=== PATIENT | female | born 1945 | race American Indian/Alaskan Native ===

== ENCOUNTER 2017-02-24 12:52 | Emergency (ER) | payer OTHER, MEDICARE ==
[2017-02-24 12:52] VITALS: BMI 26.2
[2017-02-24 13:24] VITALS: TEMP 98.3
--- NOTE | 2017-02-24 14:45 | ED PDOC ---
Arrival/HPI - General Chief Complaint: Allergic Reaction Time Seen by Provider: 02/24/17 14:37 Historian: Patient - History of Present Illness Narrative History of Present Illness (Text): 02/24/17 14:46 71-year-old female presents today with allergic reaction since yesterday. Patient states she tried a new detox cleanser from [facility] and developed swelling to the left side of the face. Patient states this occurred yesterday. No medications were taken at home. Patient states the swelling has drastically decreased. She denies trismus or drooling. Denies difficulty breathing or swallowing. No chest pain or shortness of breath. Denies rash. Denies pruritus at present time. No other complaints Time/Duration: Other (1 day) Symptom Onset: Sudden Symptom Course: Resolved Quality: Other (No pain) Past Medical History - Provider Review Nursing Documentation Reviewed: Yes - Travel History Have you recently traveled outside [place] w/in the past 3 mons?: No - Infectious Disease Hx of Infectious Diseases: None - Tetanus Immunization Tetanus Immunization: Unknown - Cardiac Hx Hypertension: Yes - Pulmonary Hx Asthma: Yes (secondary to seasonal allergies ) - Endocrine/Metabolic Hx Diabetes Mellitus Type 2: Yes - Psychiatric Hx Depression: No Hx Substance Use: No - Surgical History Hx Gastric Bypass Surgery: No - Anesthesia Hx Anesthesia: No - Suicidal Assessment Feels Threatened In Home Enviroment: No Family/Social History - Physician Review Nursing Documentation Reviewed: Yes Family/Social History: Unknown Family HX Smoking Status: Never Smoked Hx Alcohol Use: No Hx Substance Use: No Hx Substance Use Treatment: No Allergies/Home Meds Allergies/Adverse Reactions: Allergies No Known Allergies Allergy (Verified 02/24/17 13:25) Home Medications: Home Meds Medication Instructions Recorded Confirmed Metformin Hydrochloride [Metformin] 1 tab PO BID 03/06/15 03/07/16 Losartan Potassium [Losartan 1 tab PO DAILY 02/24/17 02/24/17 Potassium] Review of Systems - Review of Systems Constitutional: absent: Fatigue, Fevers ENT: Other (Facial swelling) Respiratory: absent: SOB, Cough Cardiovascular: absent: Chest Pain, Palpitations Gastrointestinal: absent: Abdominal Pain, Diarrhea, Nausea, Vomiting Genitourinary Female: absent: Dysuria, Frequency Musculoskeletal: absent: Arthralgias, Back Pain, Neck Pain Skin: Pruritis Neurological: absent: Headache, Dizziness Psychiatric: absent: Anxiety, Depression Physical Exam Vital Signs Reviewed: Yes Vital Signs Temp Pulse Resp BP Pulse Ox 02/24/17 13:21 98.3 F 84 18 131/80 97 Temperature: Afebrile Blood Pressure: Normal Pulse: Regular Respiratory Rate: Normal Appearance: Positive for: Well-Appearing, Non-Toxic, Comfortable Pain Distress: None Mental Status: Positive for: Alert and Oriented X 3 - Systems Exam Head: Present: Atraumatic, Normocephalic. No: Tenderness, Contusion, Swelling, Ecchymosis, Abrasion, Laceration Extroacular Muscles: Present: EOMI Conjunctiva: Present: Normal Ears: Present: Normal, NORMAL TM Mouth: Present: Moist Mucous Membranes, Normal Lips, Normal Tounge, Normal Teeth , Other (No elevation of the floor of the mouth). No: Drooling, Trismus Pharnyx: Present: Normal. No: ERYTHEMA, EXUDATE, TONSILS ENLARGED, Peritonsilar Swelling, Uvular Deviation, Muffled/Hoarse Voice, Strider, Soft Palate/Uvular Edema Nose (Internal): Present: Normal Inspection Neck: Present: Normal Range of Motion, Trachea Midline. No: Lymphadenopathy Respiratory/Chest: Present: Clear to Auscultation, Good Air Exchange. No: Respiratory Distress, Accessory Muscle Use Cardiovascular: Present: Regular Rate and Rhythm, Normal S1, S2. No: Murmurs Upper Extremity: Present: Normal ROM Lower Extremity: Present: Normal ROM Neurological: Present: GCS=15 Skin: Present: Warm, Dry, Normal Color. No: Rashes Psychiatric: Present: Alert, Oriented x 3 Medical Decision Making ED Course and Treatment: 02/24/17 14:48 Patient is nontoxic well-appearing in no distress with stable vital signs no angioedema. Lungs are clear to auscultation bilaterally there is no wheezing noted. The airway is patent Patient with allergic reaction yesterday which since has resolved. Benadryl 25 mg by mouth Prednisone 40 by mouth Patient reassessment: After medications patient is feeling much better the lungs are clear to auscultation bilaterally the airway is patent the patient is speaking in full sentences. I've advised to discontinue the use of the detox cleansing pills. I advised taking Benadryl every 6 hours as needed for itch as well as prednisone daily x4 days. Advised patient to follow up with primary care physician within the next 2 days and return if symptoms worsen persist or if new symptoms develop Patient verbalized full agreement with and understanding of discharge instructions. States that she agrees with the plan and disposition. Verbalized and repeated discharge instructions and plan. I have given her the opportunity to ask any additional questions. Impression :Allergic reaction Benadryl every 6 hours as needed for itch Prednisone once daily x4 days Pepcid one tablet daily Follow up with the primary care physician tomorrow Return if symptoms worsen persist or if new symptoms develop: Shortness of breath, feeling of throat closing, difficulty speaking or any other concerning symptoms develop Disposition/Present on Arrival - Present on Arrival Any Indicators Present on Arrival: No History of DVT/PE: No History of Uncontrolled Diabetes: No Urinary Catheter: No History of Decub. Ulcer: No History Surgical Site Infection Following: None - Disposition Have Diagnosis and Disposition been Completed?: Yes Diagnosis: Allergic reaction Disposition: HOME/ ROUTINE Disposition Time: 14:39 Patient Plan: Discharge Condition: GOOD Discharge Instructions (ExitCare): General Allergic Reaction (ED) Additional Instructions: Benadryl every 6 hours as needed for itch Prednisone once daily x4 days Pepcid one tablet daily Follow up with the primary care physician tomorrow Return if symptoms worsen persist or if new symptoms develop: Shortness of breath, feeling of throat closing, difficulty speaking or any other concerning symptoms develop Prescriptions: DiphenhydrAMINE [Benadryl] 25 mg PO Q6H #20 cap Famotidine [Pepcid] 20 mg PO DAILY #30 tab predniSONE [predniSONE Tab] 2 tab PO DAILY #8 tab Referrals: Aleksandr Warren DO [Staff Provider] - Follow up with primary Giselle Thompson MD [Staff Provider] - Follow up with primary Forms: [employer] (Egyptian)
[2017-02-24 15:00] VITALS: BP 132/80; PULSE 82; RESP 16; O2SAT 98
== END 2017-02-24 14:56 | disposition home or self-care (01) ==
LOC: ED 12:52
DX: T78.40XA Allergy, unspecified, initial encounter (principal); X58.XXXA Exposure to other specified factors, initial encounter

== ENCOUNTER 2017-12-11 22:37 | Emergency (ER) | payer OTHER, MEDICARE ==
--- NOTE | 2017-12-11 22:47 | ED PDOC ---
Arrival/HPI - General Time Seen by Provider: 12/11/17 22:44 Historian: Patient - History of Present Illness Narrative History of Present Illness (Text): 12/11/17 22:46 72yo female with PMhx of Asthma, hypertension and NIDDM who present with complaint of clear productive cough since yesterday. States she came to ED tonight but she started wheezing while laying down and coughing. She did not use her inhaler. Denies fever, chills, SOB, chest pain, sick contact, travel, any other complaint. Past Medical History - Provider Review Nursing Documentation Reviewed: Yes - Infectious Disease Hx of Infectious Diseases: None - Tetanus Immunization Tetanus Immunization: Unknown - Cardiac Hx Cardiac Disorders: Yes Hx Hypertension: Yes - Pulmonary Hx Respiratory Disorders: Yes Hx Asthma: Yes (secondary to seasonal allergies ) - Neurological Hx Neurological Disorder: No - HEENT Hx HEENT Disorder: Yes (seasonal allergies) - Renal Hx Renal Disorder: No - Endocrine/Metabolic Hx Endocrine Disorders: Yes Hx Diabetes Mellitus Type 2: Yes - Hematological/Oncological Hx Blood Disorders: No - Integumentary Hx Dermatological Disorder: Yes Other/Comment: large lipoma, right shoulder - Musculoskeletal/Rheumatological Hx Musculoskeletal Disorders: No - Gastrointestinal Hx Gastrointestinal Disorders: No - Genitourinary/Gynecological Hx Genitourinary Disorders: No - Psychiatric Hx Psychophysiologic Disorder: No - Surgical History Hx Breast Biopsy: Yes (left breast x 4) - Anesthesia Hx Anesthesia: Yes Hx Anesthesia Reactions: No Hx Malignant Hyperthermia: No - Suicidal Assessment Feels Threatened In Home Enviroment: No Family/Social History - Physician Review Nursing Documentation Reviewed: Yes Family/Social History: Unknown Family HX Smoking Status: Never Smoked Hx Alcohol Use: No Hx Substance Use Treatment: No Allergies/Home Meds Allergies/Adverse Reactions: Allergies No Known Allergies Allergy (Verified 12/11/17 22:43) Home Medications: Home Meds Medication Instructions Recorded Confirmed Losartan Potassium [Losartan 1 tab PO DAILY 02/24/17 12/11/17 Potassium] metFORMIN [glucOPHAGE] 500 mg PO BID 06/08/17 12/11/17 Review of Systems - Physician Review All systems were reviewed & negative as marked: Yes - Review of Systems Constitutional: Normal Eyes: Normal ENT: Normal Respiratory: Cough, Sputum. absent: SOB, Wheezing Cardiovascular: Normal Gastrointestinal: Normal Genitourinary Female: Normal Musculoskeletal: Normal Skin: Normal Neurological: Normal Endocrine: Normal Hemo/Lymphatic: Normal Psychiatric: Normal Physical Exam Vital Signs Reviewed: Yes Vital Signs Temp Pulse Resp BP Pulse Ox 12/11/17 23:45 84 18 128/76 100 12/11/17 22:38 98 F 87 18 149/94 H 99 Temperature: Afebrile Blood Pressure: Normal Pulse: Regular Respiratory Rate: Normal Appearance: Positive for: Well-Appearing, Non-Toxic, Comfortable Pain Distress: None Mental Status: Positive for: Alert and Oriented X 3 - Systems Exam Head: Present: Atraumatic, Normocephalic Pupils: Present: PERRL Extroacular Muscles: Present: EOMI Conjunctiva: Present: Normal Mouth: Present: Moist Mucous Membranes Neck: Present: Normal Range of Motion Respiratory/Chest: Present: Clear to Auscultation, Good Air Exchange. No: Respiratory Distress, Accessory Muscle Use, Wheezes, Decreased Breath Sounds, Rales, Retracting, Rhonchi Cardiovascular: Present: Regular Rate and Rhythm, Normal S1, S2. No: Murmurs Abdomen: No: Tenderness, Distention, Peritoneal Signs Back: Present: Normal Inspection Upper Extremity: Present: Normal Inspection. No: Cyanosis, Edema Lower Extremity: Present: Normal Inspection. No: Edema Neurological: Present: GCS=15, CN II-XII Intact, Speech Normal Skin: Present: Warm, Dry, Normal Color. No: Rashes Psychiatric: Present: Alert, Oriented x 3, Normal Insight, Normal Concentration Medical Decision Making ED Course and Treatment: 12/11/17 23:06 PT present to ED for stated history. She was afebrile and hemodynamically stable. Her lung was CTA b/l. She notes that she ran out of her inhaler. she will be DC home with antitussive and albuterol inhaler. Chest xray - NAD They is no indication for antibiotics at this time. Referred to her PMD. - RAD Interpretation Radiology Orders: 12/11/17 22:44 CHEST TWO VIEWS (PA/LAT) [RAD] Stat - Medication Orders Current Medication Orders: Discontinued Medications Albuterol/Ipratropium (Duoneb 3 Mg/0.5 Mg (3 Ml) Ud) 3 ml IH STAT STA Stop: 12/11/17 23:01 Last Admin: 12/11/17 23:07 Dose: 3 ml Promethazine HCl (Phenergan Syrup) 6.25 mg PO ONCE STA Stop: 12/11/17 23:06 Last Admin: 12/11/17 23:43 Dose: 6.25 mg Disposition/Present on Arrival - Present on Arrival Any Indicators Present on Arrival: No History of DVT/PE: No History of Uncontrolled Diabetes: No Urinary Catheter: No History Surgical Site Infection Following: None - Disposition Have Diagnosis and Disposition been Completed?: Yes Diagnosis: Cough Disposition: HOME/ ROUTINE Disposition Time: 23:10 Patient Plan: Discharge Condition: STABLE Discharge Instructions (ExitCare): Cough in Adults Additional Instructions: Follow up with your doctor Return to ED for any new or worsening symptoms Prescriptions: Albuterol HFA [Ventolin HFA 90 mcg/actuation (8 g)] 2 puff IH [id number] #1 puff Promethazine [Phenergan Syrup] 6.25 % PO Q6 #100 dose Referrals: [facility] [place] - Follow up with primary Forms: [employer] (Cypriot)
[2017-12-11 22:54] VITALS: RESP 18; TEMP 98; BMI 27.4
[2017-12-11] MEDS ORDERED: Albuterol-Ipratrop 3 mg / 0.5 (3 ml) UD IH STA (23:00)
[2017-12-11] MEDS ORDERED: Promethazine 6.25 MG/5 ML CUP PO STA (23:05)
[2017-12-11 23:46] VITALS: BP 128/76; PULSE 84; O2SAT 100
--- NOTE | 2017-12-12 09:35 | RAD ---
HISTORY: Cough COMPARISON: 03/06/2015 TECHNIQUE: Chest PA and lateral FINDINGS: LUNGS: Minor bibasilar atelectasis. PLEURA: No significant pleural effusion identified. No pneumothorax apparent. CARDIOVASCULAR: Normal. OSSEOUS STRUCTURES: No significant abnormalities. VISUALIZED UPPER ABDOMEN: Normal. OTHER FINDINGS: None. IMPRESSION: Minor bibasilar atelectasis.
== END 2017-12-11 23:45 | disposition home or self-care (01) ==
LOC: ED 22:37
DX: R05 Cough (principal); E11.9 Type 2 diabetes mellitus without complications; I10 Essential (primary) hypertension

== ENCOUNTER 2018-02-16 16:30 | Emergency (ER) | payer OTHER, MEDICARE ==
[2018-02-16 16:44] VITALS: BP 137/81; RESP 18; BMI 28.1
[2018-02-16 17:47] LABS: PH,URINE 5.5 (4.7-8.0); URINE BILIRUBIN NEGATIVE (NEGATIVE); URINE BLOOD SMALL (NEGATIVE); URINE GLUCOSE (UA) NEGATIVE (NEGATIVE); URINE LEUKOCYTE ESTERASE NEGATIVE Leu/uL (NEGATIVE); URINE PROTEIN TRACE mg/dL (<30 mg/dL); URINE UROBILINOGEN 0.2 E.U./dL (<1 E.U./dL)
[2018-02-16 17:48] LABS: BASO # 0.02 K/mm3 (0.0-2.0); BASO % 0.2 % (0.0-3.0); EOS # 0.4 (0.0-0.7); EOS % 4.2 % (1.5-5.0); GRAN # 4.38 (1.4-6.5); GRAN % 52.2 % (50.0-68.0); HEMOGLOBIN 14.3 g/dL (12.0-16.0); LYMPH # 2.8 (1.2-3.4); LYMPH % 33.5 % (22.0-35.0); MEAN CELL VOLUME 91.4 fl (80.0-105.0); MEAN CORPUSCULAR HEMOGLOBIN 31.6 pg (25.0-35.0); MEAN CORPUSCULAR HGB CONC 34.5 g/dl (31.0-37.0); MEAN PLATELET VOLUME 9.6 fl (7.0-11.0); MONO # 0.8 (0.1-0.6); MONO % 9.9 % (1.0-6.0); RBC 4.53 10^6/uL (3.5-6.1); RED CELL DISTRIBUTION WIDTH 12.5 % (11.5-14.5); WHITE BLOOD COUNT 8.4 10^3/ul (4.5-11.0)
[2018-02-16 17:57] LABS: URINE COLOR YELLOW (YELLOW)
[2018-02-16 17:58] LABS: ALB/GLOB RATIO 1.3 (1.1-1.8); ALBUMIN 4.3 g/dL (3.0-4.8); ALT/SGPT 35 U/L (7-56); AST/SGOT 34 U/L (14-36); BLOOD UREA NITROGEN 17 mg/dL (7-21); CALCIUM 9.2 mg/dL (8.4-10.5); GFR AFRICAN-AMERICAN > 60; GFR NON-AFRICAN AMERICAN > 60
[2018-02-16 17:58] LABS: URINE APPEARANCE SL CLOUDY (CLEAR)
[2018-02-16 17:59] LABS: URINE BACTERIA MOD (NEG); URINE CALCIUM OXALATE CRYSTALS MOD /hpf
--- NOTE | 2018-02-16 18:14 | RAD ---
Date of service: 02/16/2018 PROCEDURE: Radiographs of the Lumbar Spine. HISTORY: Hip and back pain. No history of trauma. COMPARISON: No prior. FINDINGS: BONES: Diffuse osteopenia. Mild dextroscoliosis. DISC SPACES: Unremarkable. OTHER FINDINGS: Calcified nonaneurysmal abdominal aorta. Partially calcified myomatous uterus. IMPRESSION: No acute findings related to/accounting for the clinical presentation. Additional benign and/or incidental findings described above.
--- NOTE | 2018-02-16 18:14 | RAD ---
PROCEDURE: Left Hip X-ray Radiographs. HISTORY: Hip Pain. No history of recent/ related trauma provided COMPARISON: None. FINDINGS: BONES: Normal. No fracture. JOINTS: Degenerative changes are moderate and symmetrical. SOFT TISSUES: Normal. OTHER FINDINGS: Calcified uterine fibroids. IMPRESSION: No acute findings related to/accounting for the clinical presentation.
--- NOTE | 2018-02-16 18:57 | ED PDOC ---
Arrival/HPI - General Chief Complaint: Back Pain Time Seen by Provider: 02/16/18 16:54 Historian: Patient - History of Present Illness Narrative History of Present Illness (Text): 02/16/18 19:05 72yr old female presents today with left-sided low back pain and left hip pain. Patient states she's been having pain for the past 2 days. Patient denies any recent fall. Patient states the only thing that she can think that started the pain was when she was pushing a chair with all of her belongings across the room at work. Patient denies abdominal pain. Denies nausea vomiting diarrhea or constipation. She denies any urinary symptoms. Denies dysuria or urinary frequency. She denies hematuria. Patient denies chest pain or shortness of breath. Patient denies numbness weakness or tingling in the lower extremity. Patient states for the past 2 days she's had this achy pain in the left lower back into the left hip. Patient states the pain is worse if she sitting upright or with movement of the hip. Patient has not taken any medications for pain at home. No other complaints. Time/Duration: Other (2 days) Symptom Course: Unchanged Quality: Aching Severity Level: Mild Past Medical History - Provider Review Nursing Documentation Reviewed: Yes - Travel History Have you recently traveled outside [place] w/in the past 3 mons?: No - Infectious Disease Hx of Infectious Diseases: None - Tetanus Immunization Tetanus Immunization: Unknown - Cardiac Hx Cardiac Disorders: Yes Hx Hypertension: Yes - Pulmonary Hx Respiratory Disorders: Yes Hx Asthma: Yes (secondary to seasonal allergies ) - Neurological Hx Neurological Disorder: No - HEENT Hx HEENT Disorder: Yes (seasonal allergies) - Renal Hx Renal Disorder: No - Endocrine/Metabolic Hx Endocrine Disorders: Yes Hx Diabetes Mellitus Type 2: Yes - Hematological/Oncological Hx Blood Disorders: No - Integumentary Hx Dermatological Disorder: Yes Other/Comment: large lipoma, right shoulder - Musculoskeletal/Rheumatological Hx Musculoskeletal Disorders: No - Gastrointestinal Hx Gastrointestinal Disorders: No - Genitourinary/Gynecological Hx Genitourinary Disorders: No - Psychiatric Hx Psychophysiologic Disorder: No Hx Substance Use: No - Surgical History Hx Breast Biopsy: Yes (left breast x 4) Other/Comment: R shoulder tumor removal - Anesthesia Hx Anesthesia: Yes Hx Anesthesia Reactions: No Hx Malignant Hyperthermia: No - Suicidal Assessment Feels Threatened In Home Enviroment: No Family/Social History - Physician Review Nursing Documentation Reviewed: Yes Family/Social History: Unknown Family HX Smoking Status: Never Smoked Hx Alcohol Use: No Hx Substance Use: No Hx Substance Use Treatment: No Allergies/Home Meds Allergies/Adverse Reactions: Allergies No Known Allergies Allergy (Verified 12/11/17 22:43) Home Medications: Home Meds Medication Instructions Recorded Confirmed Losartan Potassium [Losartan 1 tab PO DAILY 02/24/17 02/16/18 Potassium] metFORMIN [glucOPHAGE] 500 mg PO BID 06/08/17 02/16/18 Review of Systems - Review of Systems Constitutional: absent: Fatigue, Fevers Respiratory: absent: SOB, Cough Cardiovascular: absent: Chest Pain, Palpitations Gastrointestinal: absent: Abdominal Pain, Constipation, Diarrhea, Nausea, Vomiting Genitourinary Female: absent: Dysuria, Frequency, Hematuria, Vaginal Discharge Musculoskeletal: Arthralgias (left hip pain), Back Pain (left low back pain) Skin: absent: Rash, Pruritis Neurological: absent: Headache, Dizziness Psychiatric: absent: Anxiety, Depression Physical Exam Vital Signs Reviewed: Yes Vital Signs Temp Pulse Resp BP Pulse Ox 02/16/18 16:38 99.0 F 97 H 18 137/81 98 Temperature: Afebrile Blood Pressure: Normal Pulse: Regular Respiratory Rate: Normal Appearance: Positive for: Well-Appearing, Non-Toxic, Comfortable Pain Distress: None Mental Status: Positive for: Alert and Oriented X 3 - Systems Exam Head: Present: Atraumatic Mouth: Present: Moist Mucous Membranes Neck: Present: Normal Range of Motion Respiratory/Chest: Present: Clear to Auscultation, Good Air Exchange. No: Respiratory Distress, Accessory Muscle Use Cardiovascular: Present: Regular Rate and Rhythm, Normal S1, S2. No: Murmurs Abdomen: No: Tenderness, Distention, Peritoneal Signs, Rebound, Guarding Back: Present: Normal Inspection, Paraspinal Tenderness (+ minimal left lower back minimal tenderness over the posterior left hip. ). No: CVA Tenderness, Midline Tenderness Upper Extremity: Present: Normal Inspection, Normal ROM Lower Extremity: Present: NORMAL PULSES, Normal ROM, Tenderness (left hip; + ttp over the posterior aspect of the hip; + ttp over lateral aspect of hip; full rom of hip with pain; no erythema; no edema, no ecchymosis; sensation and distal pulses intact. cap refill <2. ), Neurovascularly Intact, Capillary Refill < 2 s. No: CALF TENDERNESS, Swelling, Erythema, Deformity Neurological: Present: GCS=15 Skin: Present: Warm, Dry, Normal Color. No: Rashes Psychiatric: Present: Alert, Oriented x 3 Medical Decision Making ED Course and Treatment: 02/16/18 19:10 72yr old female with 2 day history of left back/hip pain. xray left hip; no fracture xray ls spine; no fracture toradol given IV cbc; wnl cmp; wnl UA; no leukocytes pt seen and evaluated by dr. caldwell. pt reassessment; pt feeling much better after medications; pt with full rom of hip with minimal pain. ambulating with steady gait. will add cane for additional support. I discussed the results and after the patient advised follow-up with the orthopedist and primary care physician within the next 2 days. Advised immediate return is symptoms worsen or persist or if new concerning symptoms develop Patient verbalizes understanding of discharge instructions and need for immediate followup. all aspects of this case were discussed the attending of record. Impression: Hip pain, back pain Motrin every 6 hours as needed for pain tramadol: 1 tablet every 8 hours as needed for moderate to severe pain; may cause drowsiness follow up with the primary care physician within the next 2 days Follow up with the Orthopedist within the next 2 days. return immediately if symptoms worsen,persist or if new symptoms develop. - Lab Interpretations Lab Results: 02/16/18 17:30 02/16/18 17:30 Lab Results 02/16/18 17:30: WBC 8.4, RBC 4.53, Hgb 14.3, Hct 41.4, MCV 91.4, MCH 31.6, MCHC 34.5, RDW 12.5, Plt Count 275, MPV 9.6, Gran % 52.2, Lymph % (Auto) 33.5, [place] % (Auto) 9.9 H, Eos % (Auto) 4.2, Baso % (Auto) 0.2, Gran # 4.38, Lymph # (Auto ) 2.8, [place] # (Auto) 0.8 H, Eos # (Auto) 0.4, Baso # (Auto) 0.02 02/16/18 17:30: Sodium 142, Potassium 3.9, Chloride 103, Carbon Dioxide 26, Anion Gap 17, BUN 17, Creatinine 0.9, Est GFR ( Amer) > 60, Est GFR (Non- Af Amer) > 60, Random Glucose 106, Calcium 9.2, Total Bilirubin 0.4, AST 34, ALT 35, Alkaline Phosphatase 80, Total Protein 7.7, Albumin 4.3, Globulin 3.4, Albumin/Globulin Ratio 1.3 02/16/18 13:32: Urine Color Yellow, Urine Appearance Sl cloudy, Urine pH 5.5, Ur Specific [place] >= 1.030, Urine Protein Trace H, Urine Glucose (UA) Negative , Urine Ketones Trace H, Urine Blood Small H, Urine Nitrate Negative, Urine Bilirubin Negative, Urine Urobilinogen 0.2, Ur Leukocyte Esterase Negative, Urine RBC 2 - 5, Urine WBC 5 - 10, Ur Epithelial Cells 10 - 12, Calcium Oxalate Crystal Mod, Urine Bacteria Mod - RAD Interpretation Radiology Orders: 02/16/18 17:05 Hip Left [HIP MIN 2V W/ PELVIS LT] [RAD] Stat LS SPINE WITH OBL > 18 YRS OLD [RAD] Stat - Medication Orders Current Medication Orders: Discontinued Medications Ketorolac Tromethamine (Toradol) 15 mg IVP STAT STA Stop: 02/16/18 17:20 Last Admin: 02/16/18 18:26 Dose: 15 mg MAR Pain Assessment Document 02/16/18 18:26 [facility] (Rec: 02/16/18 18:[address] [id number]) Pain Reassessment Is this a pain reassessment? No Sleep Is patient sleeping during reassessment? No Presence of Pain Presence of Pain Yes Pain Scale Used Pain Scale Used Numeric Location Pain Location Body Site Back Description Description Constant Intensity of Pain at present 5 Pain Behavior Facial Grimacing Aggravating Factors Changing Position Alleviating Factors/Management Medication Techniques Alleviating Factors Medication IVP Administration Document 02/16/18 18:26 [facility] (Rec: 02/16/18 18:[address] [id number]) Charges for Administration # of IVP Administrations 1 Disposition/Present on Arrival - Present on Arrival Any Indicators Present on Arrival: No History of DVT/PE: No History of Uncontrolled Diabetes: No Urinary Catheter: No History of Decub. Ulcer: No History Surgical Site Infection Following: None - Disposition Have Diagnosis and Disposition been Completed?: Yes Diagnosis: Hip pain, Back pain Disposition: HOME/ ROUTINE Disposition Time: 18:55 Patient Plan: Discharge Patient Problems: Current Active Problems Problem Status Onset Back pain Acute Hip pain Acute Condition: GOOD Discharge Instructions (ExitCare): Hip Pain (DC) Additional Instructions: Motrin every 6 hours as needed for pain tramadol: 1 tablet every 8 hours as needed for moderate to severe pain; may cause drowsiness follow up with the primary care physician within the next 2 days Follow up with the Orthopedist within the next 2 days. return immediately if symptoms worsen,persist or if new symptoms develop. Prescriptions: Ibuprofen [Motrin] 600 mg PO Q6H PRN #15 tab PRN Reason: pain/fever reduction traMADol [Ultram] 50 mg PO Q6H PRN #6 tab PRN Reason: moderate to severe pain Referrals: Soledad Hays MD [Staff Provider] - Follow up with primary Nic Moreira DO [Staff Provider] - Follow up with primary [employer] [Outside] - Follow up with primary Forms: [employer] (Nepalese), WORK NOTE
[2018-02-16 19:11] VITALS: PULSE 95; TEMP 98.9; O2SAT 99
== END 2018-02-16 19:14 | disposition home or self-care (01) ==
LOC: ED 16:30
DX: M25.552 Pain in left hip (principal); M54.5 Low back pain
CPT/HCPCS: 72110; 73502; 80053; 81001; 85025; 87086; 96374; 99282; J1885

== ENCOUNTER 2018-04-19 15:28 | Emergency (ER) | payer OTHER, MEDICARE ==
[2018-04-19 15:29] VITALS: BMI 27.4
--- NOTE | 2018-04-19 15:57 | ED PDOC ---
Arrival/HPI - General Chief Complaint: Abnormal Skin Integrity Time Seen by Provider: 04/19/18 15:38 Historian: Patient - History of Present Illness Narrative History of Present Illness (Text): 04/19/18 15:58 72 yo F c/o red painful rash underneath her R breast which she noticed today. Denies any palpable mass, nipple d/c, fevers, chills, CP, SOB, palpitations, back pain, trauma, injury, N/V, abdominal pain. Has no additional complaints. Past Medical History - Infectious Disease Hx of Infectious Diseases: None - Tetanus Immunization Tetanus Immunization: Unknown - Reproductive Menopause: Yes - Cardiac Hx Cardiac Disorders: Yes Hx Hypertension: Yes - Pulmonary Hx Respiratory Disorders: Yes Hx Asthma: Yes (secondary to seasonal allergies ) - Neurological Hx Neurological Disorder: No - HEENT Hx HEENT Disorder: Yes (seasonal allergies) - Renal Hx Renal Disorder: No - Endocrine/Metabolic Hx Endocrine Disorders: Yes Hx Diabetes Mellitus Type 2: Yes - Hematological/Oncological Hx Blood Disorders: No - Integumentary Hx Dermatological Disorder: Yes Other/Comment: large lipoma, right shoulder - Musculoskeletal/Rheumatological Hx Musculoskeletal Disorders: No - Gastrointestinal Hx Gastrointestinal Disorders: No - Genitourinary/Gynecological Hx Genitourinary Disorders: No - Psychiatric Hx Psychophysiologic Disorder: No Hx Substance Use: No - Surgical History Hx Breast Biopsy: Yes (left breast x 4) Other/Comment: R shoulder tumor removal - Anesthesia Hx Anesthesia: Yes Hx Anesthesia Reactions: No Hx Malignant Hyperthermia: No - Suicidal Assessment Feels Threatened In Home Enviroment: No Family/Social History Family/Social History: No Known Family HX Smoking Status: Never Smoked Hx Alcohol Use: No Hx Substance Use: No Hx Substance Use Treatment: No Allergies/Home Meds Allergies/Adverse Reactions: Allergies No Known Allergies Allergy (Verified 04/19/18 15:40) Home Medications: Home Meds Medication Instructions Recorded Confirmed Losartan Potassium [Losartan 25 mg PO DAILY 02/24/17 04/19/18 Potassium] metFORMIN [glucOPHAGE] 500 mg PO BID 06/08/17 04/19/18 Review of Systems - Review of Systems Constitutional: absent: Fatigue, Fevers Respiratory: absent: SOB, Cough Cardiovascular: absent: Chest Pain, Palpitations Gastrointestinal: absent: Abdominal Pain, Nausea, Vomiting Musculoskeletal: absent: Arthralgias, Back Pain, Neck Pain Skin: Rash. absent: Pruritis, Skin Lesions Neurological: absent: Headache, Dizziness Physical Exam Vital Signs Temp Pulse Resp BP Pulse Ox 04/19/18 15:37 98.5 F 97 H 18 149/81 97 Temperature: Afebrile Blood Pressure: Normal Pulse: Regular Respiratory Rate: Normal Appearance: Positive for: Well-Appearing, Non-Toxic, Comfortable Pain Distress: None Mental Status: Positive for: Alert and Oriented X 3 - Systems Exam Head: Present: Atraumatic, Normocephalic Pupils: Present: PERRL Extroacular Muscles: Present: EOMI Conjunctiva: Present: Normal Mouth: Present: Moist Mucous Membranes Neck: Present: Normal Range of Motion. No: Meningeal Signs, Lymphadenopathy Respiratory/Chest: Present: Clear to Auscultation, Good Air Exchange. No: Respiratory Distress, Accessory Muscle Use, Tender to Palpation Cardiovascular: Present: Regular Rate and Rhythm, Normal S1, S2. No: Murmurs Abdomen: No: Tenderness, Distention, Peritoneal Signs Breast/Axillary: Present: Other (+erythematous circular vesicular like lesions noted underneath the R breast. Female ER EMT present during the entire exam. ), Symmetrical. No: Axillary Lymphad, Discoloration, Masses, Nipple Discharge, Swelling, Tender to Palpation Back: Present: Normal Inspection Upper Extremity: Present: Normal Inspection. No: Cyanosis, Edema Lower Extremity: Present: Normal Inspection. No: Edema Neurological: Present: GCS=15, CN II-XII Intact, Speech Normal Skin: Present: Warm, Dry, Normal Color. No: Rashes Psychiatric: Present: Alert, Oriented x 3, Normal Insight, Normal Concentration Medical Decision Making ED Course and Treatment: 04/19/18 15:57 Plan : - Acyclovir PO Diagnosis of herpes zoster discussed with the patient in great detail. Advised to follow up with primary care physician in 1-2 days without fail. Advised to take medication as prescribed. Return to the emergency room at any time for any new or worsening symptoms. Patient states she fully agrees with and understands discharge instructions. States that she agrees with the plan and disposition. Verbalized and repeated discharge instructions and plan. I have given the patient opportunity to ask any additional questions. - Medication Orders Current Medication Orders: Discontinued Medications Acyclovir (Zovirax) 800 mg PO STAT STA PRN Reason: Protocol Stop: 04/19/18 15:53 - PA / FIXED INCOME ANALYST / Resident Statement MD/DO has reviewed & agrees with the documentation as recorded. Disposition/Present on Arrival - Present on Arrival Any Indicators Present on Arrival: No History of DVT/PE: No History of Uncontrolled Diabetes: No Urinary Catheter: No History of Decub. Ulcer: No History Surgical Site Infection Following: None - Disposition Have Diagnosis and Disposition been Completed?: Yes Diagnosis: Herpes zoster Disposition: HOME/ ROUTINE Disposition Time: 16:00 Patient Plan: Discharge Patient Problems: Current Active Problems Problem Status Onset Herpes zoster Acute Condition: STABLE Discharge Instructions (ExitCare): Shingles (ED) Additional Instructions: Thank you for letting us take care of you today. You were treated for herpes zoster. The emergency medical care you received today was directed at your acute symptoms. If you were prescribed any medication, please fill it and take as directed. It may take several days for your symptoms to resolve. Return to the Emergency Department if your symptoms worsen, do not improve, or if you have any other problems. Please contact your doctor in 2 days for re-evaluation and follow up / or call one of the physicians/clinics you have been referred to that are listed on the Patient Visit Information form that is included in your discharge packet. Bring any paperwork you were given at discharge with you along with any medications you are taking to your follow up visit. Our treatment cannot replace ongoing medical care by a primary care provider (PCP) outside of the emergency department. Thank you for allowing the [facility] team to be part of your care today. Prescriptions: Acyclovir [Zovirax] 800 mg PO 5XD #35 tablet Referrals: [facility] at [facility] [Outside] - Follow up with primary Frandy Murphy MD [Staff Provider] - Follow up with primary Forms: [employer] (Danish), WORK NOTE
[2018-04-19 16:10] VITALS: RESP 18; TEMP 98.5
[2018-04-19 17:26] VITALS: BP 132/81; PULSE 80; O2SAT 98
== END 2018-04-19 17:25 | disposition home or self-care (01) ==
LOC: ED 15:28
DX: B02.9 Zoster without complications (principal)

== ENCOUNTER 2019-01-01 20:24 | Emergency (ER) | payer MEDICARE ==
[2019-01-01 20:25] VITALS: BMI 27.4
[2019-01-01 21:04] VITALS: TEMP 98; O2SAT 98
--- NOTE | 2019-01-01 21:31 | ED PDOC ---
Arrival/HPI - General Chief Complaint: Cough, Cold, Congestion Time Seen by Provider: 01/01/19 20:28 Historian: Patient - History of Present Illness Narrative History of Present Illness (Text): 01/01/19 21:31 Samanta Schumacher is a 73 year old female, whose past medical history includes hypertension, diabetes, and hyperlipidemia, who presents to the ED complaining of cough. Patient states she has been experiencing a dry cough since yesterday evening. Patient reports an occasional "metallic" taste in her mouth after coughing, denies any sputum. Patient denies any tobacco abuse, fever, chills, chest pain, shortness of breath, nausea, vomiting, diarrhea, urinary symptoms, back pain, neck pain, headache, dizziness, or any other complaints. Symptom Onset: Gradual Symptom Course: Unchanged Activities at Onset: Light Context: Home Past Medical History - Provider Review Nursing Documentation Reviewed: Yes - Infectious Disease Hx of Infectious Diseases: None - Tetanus Immunization Tetanus Immunization: Unknown - Cardiac Hx Cardiac Disorders: Yes Hx Hypertension: Yes - Pulmonary Hx Respiratory Disorders: Yes Hx Asthma: Yes (secondary to seasonal allergies ) - Neurological Hx Neurological Disorder: No - HEENT Hx HEENT Disorder: Yes (seasonal allergies) - Renal Hx Renal Disorder: No - Endocrine/Metabolic Hx Endocrine Disorders: Yes Hx Diabetes Mellitus Type 2: Yes - Hematological/Oncological Hx Blood Disorders: No - Integumentary Hx Dermatological Disorder: Yes Other/Comment: large lipoma, right shoulder - Musculoskeletal/Rheumatological Hx Musculoskeletal Disorders: No - Gastrointestinal Hx Gastrointestinal Disorders: No - Genitourinary/Gynecological Hx Genitourinary Disorders: No - Psychiatric Hx Psychophysiologic Disorder: No Hx Substance Use: No - Surgical History Hx Breast Biopsy: Yes (left breast x 4) Other/Comment: R shoulder tumor removal - Anesthesia Hx Anesthesia: Yes Hx Anesthesia Reactions: No Hx Malignant Hyperthermia: No - Suicidal Assessment Feels Threatened In Home Enviroment: No Family/Social History - Physician Review Nursing Documentation Reviewed: Yes Family/Social History: Unknown Family HX Smoking Status: Never Smoked Hx Alcohol Use: No Hx Substance Use: No Hx Substance Use Treatment: No Allergies/Home Meds Allergies/Adverse Reactions: Allergies pollen extracts Allergy (Verified 01/01/19 21:03) SWELLING Home Medications: Home Meds Medication Instructions Recorded Confirmed metFORMIN [glucOPHAGE] 500 mg PO BID 06/08/17 01/01/19 Albuterol Sulfate [Proair Hfa] 1 puff IH DAILY 01/01/19 01/01/19 Atorvastatin [Lipitor] 10 mg pe PO DAILY 01/01/19 01/01/19 Calcium Carbonate/Vitamin D3 1 tab PO DAILY 01/01/19 01/01/19 [Calcium 1,000 + D3 Caplet] Losartan [Cozaar] 25 mg PO DAILY 01/01/19 01/01/19 Review of Systems - Physician Review All systems were reviewed & negative as marked: Yes - Review of Systems Constitutional: Normal. absent: Fevers Eyes: Normal ENT: Normal Respiratory: Cough. absent: Sputum Cardiovascular: Normal. absent: Chest Pain Gastrointestinal: Normal. absent: Abdominal Pain, Diarrhea, Nausea, Vomiting Genitourinary Female: Normal. absent: Dysuria, Frequency, Hematuria, Urine Output Changes Musculoskeletal: Normal. absent: Back Pain, Neck Pain Skin: Normal. absent: Rash Neurological: Normal. absent: Headache, Dizziness Endocrine: Normal Hemo/Lymphatic: Normal Psychiatric: Normal Physical Exam Vital Signs Reviewed: Yes Vital Signs Temp Pulse Resp BP Pulse Ox 01/01/19 20:25 98 F 86 18 133/76 98 Temperature: Afebrile Blood Pressure: Normal Pulse: Regular Respiratory Rate: Normal Appearance: Positive for: Well-Appearing, Non-Toxic, Comfortable Pain Distress: None Mental Status: Positive for: Alert and Oriented X 3 - Systems Exam Head: Present: Atraumatic, Normocephalic Pupils: Present: PERRL Extroacular Muscles: Present: EOMI Conjunctiva: Present: Normal Mouth: Present: Moist Mucous Membranes Neck: Present: Normal Range of Motion Respiratory/Chest: Present: Clear to Auscultation, Good Air Exchange. No: Respiratory Distress, Accessory Muscle Use Cardiovascular: Present: Regular Rate and Rhythm, Normal S1, S2. No: Murmurs Abdomen: No: Tenderness, Distention, Peritoneal Signs Back: Present: Normal Inspection Upper Extremity: Present: Normal Inspection. No: Cyanosis, Edema Lower Extremity: Present: Normal Inspection. No: Edema Neurological: Present: GCS=15, CN II-XII Intact, Speech Normal Skin: Present: Warm, Dry, Normal Color. No: Rashes Psychiatric: Present: Alert, Oriented x 3, Normal Insight, Normal Concentration Medical Decision Making ED Course and Treatment: 01/01/19 21:31 Impression: 73 year old female complaining of dry cough since yesterday. Plan: -- CXR -- Reassess and disposition Prior Visits: Notes and results from previous visits were reviewed. Progress Notes: 01/01/19 23:40 Chest X-ray reviewed, shows no acute processes. - RAD Interpretation Laundry Aid: ED Physician - Scribe Statement The provider has reviewed the documentation as recorded by the Scribe Cassi Fowler Provider Scribe Attestation: All medical record entries made by the Scribe were at my direction and personally dictated by me. I have reviewed the chart and agree that the record accurately reflects my personal performance of the history, physical exam, medical decision making, and the department course for this patient. I have also personally directed, reviewed, and agree with the discharge instructions and disposition. Disposition/Present on Arrival - Present on Arrival Any Indicators Present on Arrival: No History of DVT/PE: No History of Uncontrolled Diabetes: No Urinary Catheter: No History of Decub. Ulcer: No History Surgical Site Infection Following: None - Disposition Have Diagnosis and Disposition been Completed?: Yes Diagnosis: Bronchitis Disposition: HOME/ ROUTINE Disposition Time: 23:42 Patient Plan: Discharge Patient Problems: Current Active Problems Problem Status Onset Bronchitis Acute Condition: GOOD Discharge Instructions (ExitCare): Acute Bronchitis, Adult (DC) Additional Instructions: Take meds as prescribed/follow up with your doctor this week Prescriptions: Benzonatate [Tessalon Perles] 100 mg PO TID PRN #21 sgl PRN Reason: Cough Azithromycin [Zithromax] 250 mg PO DAILY #6 tab Referrals: Светлана BOWMAN,Izzy Downing APN [Primary Care Provider] - Follow up with primary Forms: [employer] (Haitian)
[2019-01-02 01:31] VITALS: BP 127/74; PULSE 81; RESP 16
--- NOTE | 2019-01-02 11:11 | RAD ---
Date of service: 01/01/2019 HISTORY: Cough COMPARISON: 12/11/2017. TECHNIQUE: Chest PA and lateral FINDINGS: LINES AND TUBES: None. LUNG AND PLEURA: The lungs are well inflated and clear. No pleural effusion or pneumothorax. HEART AND MEDIASTINUM: The heart is not enlarged. There are aortic atherosclerotic calcifications present. The hilar and mediastinal contours are within normal limits. SKELETAL STRUCTURES: The bony structures are within normal limits for the patient's age. VISUALIZED UPPER ABDOMEN: Normal. OTHER FINDINGS: None. IMPRESSION: No active pulmonary disease.
== END 2019-01-02 00:25 | disposition home or self-care (01) ==
LOC: ED 20:24
DX: J40 Bronchitis, not specified as acute or chronic (principal); E11.9 Type 2 diabetes mellitus without complications; I10 Essential (primary) hypertension; E78.5 Hyperlipidemia, unspecified